=== PATIENT | male | born 2000 | race Caucasian/White ===

== ENCOUNTER 2020-01-17 21:18 | Emergency (ER) | payer BC ==
--- NOTE | 2020-01-17 23:32 | RADIOLOGY REPORT (SQ) ---
EXAM DESCRIPTION: XR KNEE 4 OR MORE VIEWS COMPLETED DATE/TME: 01/17/2020 22:42 CLINICAL HISTORY: 19 years, Male, PAIN/ FALL COMPARISON: None. NUMBER OF VIEWS: 4 TECHNIQUE: 4 views left knee LIMITATIONS: None. FINDINGS: Minimally displaced and depressed medial tibial plateau fracture. Associated joint effusion. No dislocation IMPRESSION: Minimally displaced and depressed medial tibial plateau fracture copyright 2010 [employer]- All Rights Reserved
[2020-01-18] MEDS ORDERED: HYDROCODONE/ACETAMINOPHEN 5-325 MG TABLET PO ONE (00:20)
--- NOTE | 2020-01-18 00:23 | ER Document Report ---
ED General - General Chief Complaint: Fall Injury Stated Complaint: FALL/RIGHT KNEE INJURY Time Seen by Provider: 01/18/20 00:06 Primary Care Provider: SUNI CALLOWAY MD [ACTIVE PROVISIONAL STAFF] - Follow up as needed Mode of Arrival: Wheelchair Information source: Patient TRAVEL OUTSIDE OF THE [place] IN LAST 30 DAYS: No - HPI Onset: Other - around 5pm Onset/Duration: Sudden Quality of pain: Pressure, Throbbing Severity: Severe Pain Level: 5 Associated symptoms: None Exacerbated by: Other - weight bearing on right leg Relieved by: Remaining still Similar symptoms previously: No Recently seen / treated by doctor: No Notes: 19 year old male with no significant PMH here in the ER for evaluation of right knee pain and swelling, inability to weight bear on right leg and mild left wrist pain which started after her fell down while drinking earlier today. The patient is visiting a friend here in [place] and he drove here from [place]. The patient says he cannot weight bear with his right leg at all. The patient also has some mild left wrist pain but no swelling or bruising. - Related Data Allergies/Adverse Reactions: No Known Allergies Allergy (Verified 01/17/20 21:25) Past Medical History - General Information source: Patient - Social History Smoking Status: Never Smoker Chew tobacco use (# tins/day): No Frequency of alcohol use: Social Drug Abuse: None Family History: Reviewed & Not Pertinent Patient has suicidal ideation: No Patient has homicidal ideation: No Review of Systems - Review of Systems Constitutional: No symptoms reported EENT: No symptoms reported Cardiovascular: No symptoms reported Respiratory: No symptoms reported Gastrointestinal: No symptoms reported Genitourinary: No symptoms reported Male Genitourinary: No symptoms reported Musculoskeletal: Other - Right knee pain and swelling. Inability to weight bear on right leg. Mild pain in left wrist. Skin: No symptoms reported Hematologic/Lymphatic: No symptoms reported Physical Exam - Vital signs Vitals: Temp Pulse Resp BP Pulse Ox 98.3 F 130 H 18 140/75 H 96 01/17/20 21:23 01/17/20 21:23 01/17/20 21:23 01/17/20 21:23 01/17/20 21:23 - Notes Notes: GENERAL: Well-appearing, well-nourished and in no acute distress. HEAD: Atraumatic, normocephalic. EYES: Pupils equal round and reactive to light, extraocular movements intact, sclera anicteric, conjunctiva are normal. ENT: TMs normal, nares patent, oropharynx clear without exudates. Moist mucous membranes. NECK: Normal range of motion, supple without lymphadenopathy or JVD. LUNGS: Breath sounds clear to auscultation bilaterally and equal. No wheezes rales or rhonchi. HEART: Regular rate and rhythm without murmurs, rubs or gallops. ABDOMEN: Soft, nontender, normoactive bowel sounds. No guarding, no rebound. No masses appreciated. EXTREMITIES: Tender and swollen right knee. Most pain is over the proximal tibia. Decreased ROM of right knee due to pain. Normal range of motion, no pitting or edema. No clubbing or cyanosis. NEUROLOGICAL: Cranial nerves II through XII grossly intact. Normal speech, normal gait. PSYCH: Normal mood, normal affect. SKIN: Warm, Dry, normal turgor, no rashes or lesions noted. Course - Re-evaluation Re-evalutation: 01/18/20 00:25 The patient has a minimally displaced and depressed right tibial plateau fracture. Dr. Calloway of Orthopedics was consulted and he agrees with the plan of a knee immobilizer, crutches/nonweight bearing, and outpatient follow up. Dr. Calloway does not think the patient raul need surgery as long he is nonweight bearing. The patient was told not to drive a car as well. Patient DCed with short course of Hydrocodone/Tylenol. The patient has some mild pain in his left wrist but he has no serious injuries on physical exam of the left wrist and he has full ROM of the left hand and wrist. - Vital Signs Vital signs: Temp Pulse Resp BP Pulse Ox 98.1 F 98 18 135/67 H 98 01/18/20 00:31 01/18/20 00:31 01/18/20 00:31 01/18/20 00:31 01/18/20 00:31 - Diagnostic Test Radiology reviewed: Image reviewed, Reports reviewed Discharge - Discharge Clinical Impression: Tibial plateau fracture Qualifiers: Encounter type: initial encounter Fracture type: closed Laterality: right Qualified Code(s): S82.141A - Displaced bicondylar fracture of right tibia, initial encounter for closed fracture Disposition: HOME, SELF-CARE Instructions: Use of Crutches ([facility]), Fractured Tibia ([facility]) Additional Instructions: Do not weight bear at all. If you do not weight bear you likely wont need surgery. If you weight bear you may end up needing surgery. Follow up with Dr. Calloway of Orthopedics or with another Orthopedic Surgeon next week. Use crutches and keep the knee immobilizer on your leg at all times. Use tylenol and motrin for pain and hydrocodone/tylenol for pain not well controlled. Referrals: SUNI CALLOWAY MD [ACTIVE PROVISIONAL STAFF] - Follow up as needed
[2020-01-18] MEDS ORDERED: HYDROCODONE/ACETAMINOPHEN 5-325 MG (6 TAB/ER DISP) PO PRN (00:29)
[2020-01-18 00:32] VITALS: BP 135/67
== END 2020-01-18 01:02 | disposition home or self-care (01) ==
LOC: ER 21:18
DX: S82.141A Displaced bicondylar fracture of right tibia, initial encounter for closed fracture (principal); M25.561 Pain in right knee; M79.89 Other specified soft tissue disorders; M25.532 Pain in left wrist; W19.XXXA Unspecified fall, initial encounter
CPT/HCPCS: 99283